=== PATIENT | female | born 2000 | race Caucasian/White ===

== ENCOUNTER 2024-05-19 11:36 | Emergency (ER) | payer SELFPAY ==
[~2024-05-19] VITALS: Ht 170.2 cm; Wt 74.6 kg
[2024-05-19] MEDS: ACETAMINOPHEN 500 MG TAB PO ONE (11:50)
[2024-05-19 14:02] VITALS: BP 137/88; TEMP 98.8; O2SAT 100
[2024-05-19] MEDS ORDERED: NYST-38 PO (14:48)
[2024-05-19] MEDS ORDERED: VENTAER INH (15:38)
== END 2024-05-19 14:57 | disposition home or self-care (01) ==
LOC: M ED 11:36
DX: J06.9 Acute upper respiratory infection, unspecified (principal); B34.2 Coronavirus infection, unspecified; B37.0 Candidal stomatitis; Z79.52 Long term (current) use of systemic steroids; Z79.899 Other long term (current) drug therapy